=== PATIENT | female | born 1955 | race Caucasian/White ===

== ENCOUNTER 2022-09-08 06:54 | Outpatient (OUT) | payer OTHER, SELFPAY ==
[2022-09-08 08:25] LABS: Creatinine Urine Random 90.79 mg/dL (20.00-300.00); Microalbumin Urine Random <1.3 mg/dL (<=30.0)
[2022-09-08 08:26] LABS: Albumin Level 3.4 g/dL (3.4-5.0); BUN Creatinine Ratio 18.6; Calcium 8.8 mg/dL (8.5-10.1); Carbon Dioxide 32.5 mmol/L (21.0-32.0); Chloride 104 mmol/L (98-107); Chol HDL Ratio 3.3; Cholesterol 157 mg/dL (<=200); Estimated GFR (African America 50 (>=60); Estimated GFR (Non-African Ame 41 (>=60); Glucose 113 mg/dL (74-106); HDL Cholesterol 48 mg/dL (40-60); Phosphorus 4.9 mg/dL (2.6-4.7); Potassium 3.5 mmol/L (3.5-5.1); Sodium 145 mmol/L (136-145); Triglycerides 189 mg/dL (<=150); VLDL CHOLESTEROL 37.8 mg/dL
== END 2022-09-08 06:55 | disposition home or self-care (01) ==
LOC: LAB 06:57
PROVIDERS: PCP Internal Medicine; Visit Provider Internal Medicine
DX: E11.49 Type 2 diabetes mellitus with other diabetic neurological complication (principal); E55.9 Vitamin D deficiency, unspecified; I10 Essential (primary) hypertension; E78.5 Hyperlipidemia, unspecified; Z79.4 Long term (current) use of insulin
CPT/HCPCS: 36415; 80061; 80069; 82043; 82306; 82570

== ENCOUNTER 2023-10-22 09:07 | Outpatient (OUT) | payer OTHER, SELFPAY ==
[2023-10-22 10:33] LABS: Albumin Level 3.5 g/dL (3.4-5.0); Anion Gap 13.1; BUN Creatinine Ratio 16.8; Calcium 8.9 mg/dL (8.5-10.1); Carbon Dioxide 29.6 mmol/L (21.0-32.0); Chloride 104 mmol/L (98-107); Chol HDL Ratio 2.7; Cholesterol 149 mg/dL (<=200); Estimated GFR (African America 51 (>=60); Estimated GFR (Non-African Ame 42 (>=60); Glucose 83 mg/dL (74-106); HDL Cholesterol 56 mg/dL (40-60); Phosphorus 4.1 mg/dL (2.6-4.7); Potassium 3.7 mmol/L (3.5-5.1); Sodium 143 mmol/L (136-145); Triglycerides 154 mg/dL (<=150); VLDL CHOLESTEROL 30.8 mg/dL
[2023-10-22 11:47] LABS: Creatinine Urine Random 80.94 mg/dL (20.00-300.00); Microalbum Creatinine Ratio Ur 17.2 mg/g (0.0-29.9); Microalbumin Urine Random 1.4 mg/dL (<=30.0)
== END 2023-10-22 09:08 | disposition home or self-care (01) ==
LOC: LAB 09:08
PROVIDERS: PCP Internal Medicine; Visit Provider Internal Medicine
DX: E11.49 Type 2 diabetes mellitus with other diabetic neurological complication (principal); E55.9 Vitamin D deficiency, unspecified; I10 Essential (primary) hypertension; E78.5 Hyperlipidemia, unspecified
CPT/HCPCS: 36415; 80061; 80069; 82043; 82306; 82570